=== PATIENT | female | born 1960 | race Caucasian/White ===

== ENCOUNTER → 2016-08-18 | Outpatient (CLI) | payer BC ==
[~2016-08-18] MED LIST: CELEXA20 MG; NORCO 325 MG-51 TAB PO; SYNTHROID0.15 MG PO
== END ==
LOC: RAD 10:16
DX: R07.81 Pleurodynia (principal)

== ENCOUNTER → 2016-09-24 | Outpatient (CLI) | payer BC | LOC: LAB 10:44 | DX: E03.9 Hypothyroidism, unspecified (principal) ==

== ENCOUNTER → 2016-11-25 | Outpatient (CLI) | payer BC ==
[2013-07-13 20:30] VITALS: BP 116/72
== END ==
LOC: LAB 12:02
DX: Z00.00 Encounter for general adult medical examination without abnormal findings (principal); R20.2 Paresthesia of skin; E03.1 Congenital hypothyroidism without goiter

== ENCOUNTER → 2018-10-16 | Outpatient (CLI) | payer BC ==
[2013-07-13 20:30] VITALS: BP 116/72
[2018-10-16 10:32] LABS: EOS # 0.1 (0.04-0.40); HEMATOCRIT 41.5 % (37.0-47.0); HEMOGLOBIN 13.1 g/dL (12.5-16.0); LYMPH# 1.3 (1.50-4.00); MEAN CELL VOLUME 92 fl (78-100); MEAN CORPUSCULAR HEMOGLOBIN 29 pg (27-31); MEAN CORPUSCULAR HGB CONC 32 g/dL (33-37); MEAN PLATELET VOLUME 9.8 fl (7.4-10.4); MONO # 0.4 (0.20-0.80); NEU # 4.1 (1.40-6.50); PLATELET COUNT 408 K/mm3 (130-400); RED BLOOD COUNT 4.53 M/mm3 (4.10-5.30); RED CELL DISTRIBUTION WIDTH 13.8 % (11.5-14.5); WHITE BLOOD COUNT 5.9 K/mm3 (4.8-10.8)
[2018-10-16 10:36] LABS: ALBUMIN 4.1 g/dL (3.5-5.0); POTASSIUM 4.7 mmol/L (3.6-5.0); TOTAL BILIRUBIN 0.6 mg/dL (0.2-1.3); TOTAL PROTEIN 7.2 g/dL (6.3-8.2)
[2018-10-16 12:28] LABS: ERYTHROCYTE SEDIMENTATION RATE 10 mm/hr (0-30)
== END ==
LOC: LAB 09:44
PROVIDERS: Internal Medicine
DX: Z00.00 Encounter for general adult medical examination without abnormal findings (principal); Z12.11 Encounter for screening for malignant neoplasm of colon; R20.2 Paresthesia of skin; E03.1 Congenital hypothyroidism without goiter

== ENCOUNTER → 2019-04-12 | Outpatient (CLI) | payer BC ==
[2013-07-13 20:30] VITALS: BP 116/72
[2019-04-12 10:57] LABS: EOS # 0.1 (0.04-0.40); EOS % 1.7 % (1.0-5.0); HEMATOCRIT 41.3 % (37.0-47.0); HEMOGLOBIN 13.3 g/dL (12.5-16.0); LYMPH# 1.4 (1.50-4.00); MEAN CELL VOLUME 91 fl (78-100); MEAN CORPUSCULAR HEMOGLOBIN 29 pg (27-31); MEAN CORPUSCULAR HGB CONC 32 g/dL (33-37); MEAN PLATELET VOLUME 9.4 fl (7.4-10.4); MONO # 0.5 (0.20-0.80); NEU # 4.7 (1.40-6.50); PLATELET COUNT 425 K/mm3 (130-400); RED BLOOD COUNT 4.55 M/mm3 (4.10-5.30); RED CELL DISTRIBUTION WIDTH 13.4 % (11.5-14.5); WHITE BLOOD COUNT 6.7 K/mm3 (4.8-10.8)
[2019-04-12 11:02] LABS: ALBUMIN 4.2 g/dL (3.5-5.0); POTASSIUM 4.6 mmol/L (3.5-5.1)
[2019-04-12 11:03] LABS: CALCIUM 9.5 mg/dL (8.3-10.5)
[2019-04-12 11:04] LABS: TOTAL PROTEIN 7.3 g/dL (6.4-8.3)
[2019-04-12 11:53] LABS: TOTAL BILIRUBIN 0.6 mg/dL (0.2-1.2)
[2019-04-12 12:19] LABS: ERYTHROCYTE SEDIMENTATION RATE 17 mm/hr (0-30)
== END ==
LOC: LAB 10:36
PROVIDERS: Internal Medicine
DX: Z00.00 Encounter for general adult medical examination without abnormal findings (principal); Z12.11 Encounter for screening for malignant neoplasm of colon; R20.2 Paresthesia of skin; E03.1 Congenital hypothyroidism without goiter; E55.9 Vitamin D deficiency, unspecified

== ENCOUNTER → 2019-04-26 | Outpatient (CLI) | payer BC ==
[2013-07-13 20:30] VITALS: BP 116/72
== END ==
LOC: MAMMO 09:15
DX: Z12.31 Encounter for screening mammogram for malignant neoplasm of breast (principal)

== ENCOUNTER → 2020-04-29 | Outpatient (CLI) | payer OTHER ==
[2013-07-13 20:30] VITALS: BP 116/72
== END ==
LOC: MAMMO 11:23
DX: Z12.31 Encounter for screening mammogram for malignant neoplasm of breast (principal)

== ENCOUNTER → 2020-05-05 | Outpatient (CLI) | payer OTHER ==
[2013-07-13 20:30] VITALS: BP 116/72
[2020-05-05 12:30] LABS: EOS # 0.1 (0.04-0.40); EOS % 1.6 % (1.0-5.0); HEMATOCRIT 40.6 % (37.0-47.0); LYMPH# 1.2 (1.50-4.00); MEAN CELL VOLUME 90 fl (78-100); MEAN CORPUSCULAR HEMOGLOBIN 29 pg (27-31); MEAN CORPUSCULAR HGB CONC 32 g/dL (33-37); MONO # 0.4 (0.20-0.80); NEU # 4.1 (1.40-6.50); PLATELET COUNT 341 K/mm3 (130-400); RED BLOOD COUNT 4.51 M/mm3 (4.10-5.30); RED CELL DISTRIBUTION WIDTH 14.1 % (11.5-14.5); WHITE BLOOD COUNT 5.8 K/mm3 (4.8-10.8)
[2020-05-05 12:34] LABS: ALBUMIN 3.9 g/dL (3.5-5.0); POTASSIUM 3.8 mmol/L (3.5-5.1)
[2020-05-05 12:35] LABS: CALCIUM 9.1 mg/dL (8.3-10.5)
[2020-05-05 12:37] LABS: TOTAL PROTEIN 6.4 g/dL (6.4-8.3)
[2020-05-05 12:38] LABS: TOTAL BILIRUBIN 0.4 mg/dL (0.2-1.2)
[2020-05-05 13:31] LABS: ERYTHROCYTE SEDIMENTATION RATE 6 mm/hr (0-30)
== END ==
LOC: LAB 11:59
PROVIDERS: Internal Medicine
DX: Z00.00 Encounter for general adult medical examination without abnormal findings (principal); Z12.11 Encounter for screening for malignant neoplasm of colon; E03.9 Hypothyroidism, unspecified; R20.2 Paresthesia of skin

== ENCOUNTER → 2020-05-14 | Outpatient (CLI) | payer OTHER ==
[2013-07-13 20:30] VITALS: BP 116/72
== END ==
LOC: LAB 09:38
DX: Z00.00 Encounter for general adult medical examination without abnormal findings (principal); Z12.11 Encounter for screening for malignant neoplasm of colon; R20.2 Paresthesia of skin

== ENCOUNTER → 2020-06-23 | Outpatient (CLI) | payer OTHER ==
[2013-07-13 20:30] VITALS: BP 116/72
== END ==
LOC: LAB 12:41
DX: Z20.828 Contact with and (suspected) exposure to other viral communicable diseases (principal)

== ENCOUNTER → 2020-06-26 | Day surgery (SDC) | payer OTHER ==
[2013-07-13 20:30] VITALS: BP 116/72
== END ==
LOC: MSO 08:07
DX: Z12.11 Encounter for screening for malignant neoplasm of colon (principal); K57.30 Diverticulosis of large intestine without perforation or abscess without bleeding; Z86.010 Personal history of colon polyps; K64.5 Perianal venous thrombosis; K64.8 Other hemorrhoids; G47.33 Obstructive sleep apnea (adult) (pediatric); E03.9 Hypothyroidism, unspecified; M19.90 Unspecified osteoarthritis, unspecified site; D50.9 Iron deficiency anemia, unspecified; Z90.710 Acquired absence of both cervix and uterus; F31.13 Bipolar disorder, current episode manic without psychotic features, severe; K90.9 Intestinal malabsorption, unspecified
CPT/HCPCS: G0105; 00812; J2704; J3010; J7120

== ENCOUNTER → 2020-08-06 | Outpatient (CLI) | payer OTHER ==
[2013-07-13 20:30] VITALS: BP 116/72
[2020-08-06 15:59] LABS: EOS # 0.2 (0.04-0.40); EOS % 2.5 % (1.0-5.0); HEMATOCRIT 44.7 % (37.0-47.0); HEMOGLOBIN 14.7 g/dL (12.5-16.0); MEAN CELL VOLUME 91 fl (78-100); MEAN CORPUSCULAR HEMOGLOBIN 30 pg (27-31); MEAN CORPUSCULAR HGB CONC 33 g/dL (33-37); MEAN PLATELET VOLUME 9.7 fl (7.4-10.4); MONO # 0.6 (0.20-0.80); NEU # 5.9 (1.40-6.50); PLATELET COUNT 376 K/mm3 (130-400); RED BLOOD COUNT 4.94 M/mm3 (4.10-5.30); RED CELL DISTRIBUTION WIDTH 14.9 % (11.5-14.5); WHITE BLOOD COUNT 8.7 K/mm3 (4.8-10.8)
[2020-08-06 16:11] LABS: ALBUMIN 4.2 g/dL (3.5-5.0)
[2020-08-06 16:12] LABS: POTASSIUM 4.7 mmol/L (3.5-5.1)
[2020-08-06 16:13] LABS: CALCIUM 9.6 mg/dL (8.3-10.5)
[2020-08-06 16:14] LABS: TOTAL PROTEIN 7.3 g/dL (6.4-8.3)
[2020-08-06 16:16] LABS: TOTAL BILIRUBIN 0.3 mg/dL (0.2-1.2)
[2020-08-06 16:53] LABS: ERYTHROCYTE SEDIMENTATION RATE 9 mm/hr (0-30)
== END ==
LOC: LAB 15:47
PROVIDERS: Internal Medicine
DX: K90.9 Intestinal malabsorption, unspecified (principal); E61.1 Iron deficiency; E03.1 Congenital hypothyroidism without goiter

== ENCOUNTER → 2020-10-09 | Outpatient (CLI) | payer OTHER ==
[2013-07-13 20:30] VITALS: BP 116/72
[~2020-10-09] MED LIST changes: +LAMICTAL 100MG100 MG PO; +NALTREXONE50 MG PO; +SEROQUEL400 MG PO
== END ==
LOC: LAB 09:45
DX: E03.1 Congenital hypothyroidism without goiter (principal)

== ENCOUNTER → 2020-11-07 | Outpatient (CLI) | payer OTHER ==
[2013-07-13 20:30] VITALS: BP 116/72
== END ==
LOC: LAB 12:25
DX: E03.1 Congenital hypothyroidism without goiter (principal)

== ENCOUNTER → 2020-12-31 | Outpatient (CLI) | payer OTHER ==
[2013-07-13 20:30] VITALS: BP 116/72
[2020-12-31 10:55] LABS: BASO # 0.05 (0.02-0.10); EOS % 6.2 % (1.0-5.0); HEMOGLOBIN 14.4 g/dL (12.5-16.0); MEAN CELL VOLUME 92 fl (78-100); MEAN CORPUSCULAR HEMOGLOBIN 30 pg (27-31); MEAN CORPUSCULAR HGB CONC 33 g/dL (33-37); MEAN PLATELET VOLUME 8.7 fl (7.4-10.4); MONO # 0.52 (0.20-0.80); PLATELET COUNT 456 K/mm3 (130-400); RED BLOOD COUNT 4.77 M/mm3 (4.10-5.30); RED CELL DISTRIBUTION WIDTH 13.9 % (11.5-14.5); WHITE BLOOD COUNT 8.1 K/mm3 (4.8-10.8)
[2020-12-31 11:09] LABS: ALBUMIN 4.4 g/dL (3.5-5.0); POTASSIUM 4.4 mmol/L (3.5-5.1)
[2020-12-31 11:10] LABS: CALCIUM 9.4 mg/dL (8.3-10.5)
[2020-12-31 11:12] LABS: TOTAL PROTEIN 7.6 g/dL (6.4-8.3)
[2020-12-31 11:14] LABS: TOTAL BILIRUBIN 0.6 mg/dL (0.2-1.2)
[2020-12-31 12:07] LABS: ERYTHROCYTE SEDIMENTATION RATE 1 mm/hr (0-30)
== END ==
LOC: LAB 10:42
PROVIDERS: Internal Medicine
DX: Z00.00 Encounter for general adult medical examination without abnormal findings (principal); E03.1 Congenital hypothyroidism without goiter; K90.9 Intestinal malabsorption, unspecified

== ENCOUNTER → 2021-02-04 | Outpatient (CLI) | payer OTHER | LOC: LAB 13:54 | DX: E03.1 Congenital hypothyroidism without goiter (principal) ==

== ENCOUNTER → 2021-02-20 | Outpatient (CLI) | payer OTHER | LOC: LAB 17:27 | DX: E03.9 Hypothyroidism, unspecified (principal) ==

== ENCOUNTER → 2021-04-13 | Outpatient (CLI) | payer OTHER | LOC: LAB 11:06 | DX: E03.9 Hypothyroidism, unspecified (principal) ==

== ENCOUNTER 2021-04-19 11:23 | Emergency (ER) | payer OTHER ==
[~2021-04-19] VITALS: Ht 167.6 cm; Wt 104.5 kg
[~2021-04-19 11:23] MED LIST changes: -LAMICTAL 100MG100 MG PO; -NALTREXONE50 MG PO; -SEROQUEL400 MG PO
[2021-04-19 11:35] VITALS: BP 106/72
[2021-04-19] MEDS ORDERED: LAMICTAL 100MG100 MG PO (12:21)
[2021-04-19] MEDS ORDERED: SEROQUEL400 MG PO (12:22)
[2021-04-19] MEDS ORDERED: NALTREXONE50 MG PO (12:25)
[2021-04-19 12:44] LABS: BASO # 0.03 (0.02-0.10); EOS # 0.12 (0.04-0.40); EOS % 1.4 % (1.0-5.0); HEMATOCRIT 45.3 % (37.0-47.0); HEMOGLOBIN 14.7 g/dL (12.5-16.0); MEAN CELL VOLUME 93 fl (78-100); MEAN CORPUSCULAR HEMOGLOBIN 30 pg (27-31); MEAN CORPUSCULAR HGB CONC 33 g/dL (33-37); MEAN PLATELET VOLUME 8.8 fl (7.4-10.4); MONO # 0.58 (0.20-0.80); NEU # 6.33 (1.40-6.50); PLATELET COUNT 432 K/mm3 (130-400); RED BLOOD COUNT 4.86 M/mm3 (4.10-5.30); WHITE BLOOD COUNT 8.8 K/mm3 (4.8-10.8)
[2021-04-19 12:54] LABS: ALBUMIN 4.6 g/dL (3.5-5.0)
[2021-04-19 12:55] LABS: POTASSIUM 4.1 mmol/L (3.5-5.1)
[2021-04-19 12:56] LABS: CALCIUM 10.1 mg/dL (8.3-10.5)
[2021-04-19 12:57] LABS: TOTAL PROTEIN 7.8 g/dL (6.4-8.3)
[2021-04-19 12:57] LABS: URINE APPEARANCE CLEAR; URINE BILIRUBIN NEGATIVE (NEGATIVE); URINE BLOOD NEGATIVE (NEGATIVE); URINE COLOR YELLOW; URINE GLUCOSE NEGATIVE (NEGATIVE); URINE KETONE NEGATIVE (NEGATIVE); URINE LEUKOCYTE ESTERASE TRACE (NEGATIVE); URINE NITRATE NEGATIVE (NEGATIVE); URINE PROTEIN(semi-quant) TRACE mg/dL (NEGATIVE); URINE UROBILINOGEN NORMAL (NORMAL)
[2021-04-19 12:58] LABS: URINE MUCUS PRESENT (NOT PRESENT)
[2021-04-19 12:59] LABS: TOTAL BILIRUBIN 0.5 mg/dL (0.2-1.2)
== END 2021-04-19 14:00 | disposition home or self-care (01) ==
LOC: ED 11:23
PROVIDERS: Family Medicine
DX: F31.9 Bipolar disorder, unspecified (principal); Z79.899 Other long term (current) drug therapy

== ENCOUNTER → 2021-06-15 | Outpatient (CLI) | payer OTHER ==
[~2021-06-15] MED LIST changes: +LAMICTAL 100MG100 MG PO; +NALTREXONE50 MG PO; +SEROQUEL400 MG PO
[2021-06-15 11:38] LABS: BASO # 0.02 K/mm3 (0.02-0.10); EOS # 0.07 K/mm3 (0.04-0.40); EOS % 0.7 % (1.0-5.0); HEMATOCRIT 43.6 % (37.0-47.0); HEMOGLOBIN 14.2 g/dL (12.5-16.0); LYMPH# 1.26 K/mm3 (1.50-4.00); MEAN CELL VOLUME 92 fl (78-100); MEAN CORPUSCULAR HEMOGLOBIN 30 pg (27-31); MEAN CORPUSCULAR HGB CONC 33 g/dL (33-37); MEAN PLATELET VOLUME 9.6 fl (7.4-10.4); MONO # 0.52 K/mm3 (0.20-0.80); NEU # 7.85 K/mm3 (1.40-6.50); PLATELET COUNT 415 K/mm3 (130-400); RED BLOOD COUNT 4.72 M/mm3 (4.10-5.30); RED CELL DISTRIBUTION WIDTH 13.6 % (11.5-14.5); WHITE BLOOD COUNT 9.7 K/mm3 (4.8-10.8)
[2021-06-15 12:29] LABS: ALBUMIN 4.4 g/dL (3.4-4.8); POTASSIUM 3.9 mmol/L (3.5-5.1)
[2021-06-15 12:30] LABS: CALCIUM 9.9 mg/dL (8.3-10.5)
[2021-06-15 12:31] LABS: TOTAL PROTEIN 7.6 g/dL (6.2-8.1)
[2021-06-15 12:33] LABS: TOTAL BILIRUBIN 1.4 mg/dL (0.2-1.2)
[2021-06-16 04:43] LABS: T3 FREE 3.5 pg/mL (1.7-3.7)
== END ==
LOC: LAB 11:04
PROVIDERS: Internal Medicine
DX: E03.9 Hypothyroidism, unspecified (principal); F31.9 Bipolar disorder, unspecified; K90.9 Intestinal malabsorption, unspecified

== ENCOUNTER → 2021-09-18 | Outpatient (CLI) | payer OTHER ==
[2021-09-18 22:12] LABS: T3 FREE 3.5 pg/mL (1.7-3.7)
== END ==
LOC: LAB 12:06
PROVIDERS: Internal Medicine
DX: E03.9 Hypothyroidism, unspecified (principal); K90.9 Intestinal malabsorption, unspecified

== ENCOUNTER → 2022-01-16 | Outpatient (CLI) | payer OTHER ==
[2022-01-16 09:33] LABS: BASO # 0.03 K/mm3 (0.02-0.10); EOS # 0.08 K/mm3 (0.04-0.40); EOS % 1.2 % (1.0-5.0); HEMATOCRIT 41.4 % (37.0-47.0); HEMOGLOBIN 13.4 g/dL (12.5-16.0); MEAN CELL VOLUME 93 fl (78-100); MEAN CORPUSCULAR HEMOGLOBIN 30 pg (27-31); MEAN CORPUSCULAR HGB CONC 32 g/dL (33-37); MEAN PLATELET VOLUME 8.6 fl (7.4-10.4); MONO # 0.52 K/mm3 (0.20-0.80); NEU # 4.09 K/mm3 (1.40-6.50); PLATELET COUNT 419 K/mm3 (130-400); RED BLOOD COUNT 4.45 M/mm3 (4.10-5.30); RED CELL DISTRIBUTION WIDTH 13.2 % (11.5-14.5); WHITE BLOOD COUNT 6.7 K/mm3 (4.8-10.8)
[2022-01-16 09:52] LABS: ALBUMIN 4.1 g/dL (3.4-4.8); POTASSIUM 4.8 mmol/L (3.5-5.1)
[2022-01-16 09:53] LABS: CALCIUM 9.6 mg/dL (8.3-10.5)
[2022-01-16 09:54] LABS: TOTAL PROTEIN 6.9 g/dL (6.2-8.1)
[2022-01-16 09:56] LABS: TOTAL BILIRUBIN 0.9 mg/dL (0.2-1.2)
== END ==
LOC: LAB 09:15
PROVIDERS: Internal Medicine
DX: Z00.00 Encounter for general adult medical examination without abnormal findings (principal)

== ENCOUNTER → 2022-05-11 | Outpatient (CLI) | payer OTHER | LOC: LAB 09:59 | DX: N39.0 Urinary tract infection, site not specified (principal) ==

== ENCOUNTER → 2022-10-26 | Outpatient (CLI) | payer OTHER ==
[2022-10-26 12:05] LABS: BASO # 0.04 K/mm3 (0.02-0.10); EOS # 0.06 K/mm3 (0.04-0.40); EOS % 0.5 % (1.0-5.0); HEMATOCRIT 43.7 % (37.0-47.0); HEMOGLOBIN 14.3 g/dL (12.5-16.0); LYMPH# 1.55 K/mm3 (1.50-4.00); MEAN CELL VOLUME 91 fl (78-100); MEAN CORPUSCULAR HEMOGLOBIN 30 pg (27-31); MEAN CORPUSCULAR HGB CONC 33 g/dL (33-37); MONO # 0.45 K/mm3 (0.20-0.80); NEU # 8.92 K/mm3 (1.40-6.50); PLATELET COUNT 417 K/mm3 (130-400); RED BLOOD COUNT 4.81 M/mm3 (4.10-5.30)
[2022-10-26 12:15] LABS: POTASSIUM 4.5 mmol/L (3.5-5.1)
[2022-10-26 12:16] LABS: ALBUMIN 4.7 g/dL (3.4-4.8)
[2022-10-26 12:17] LABS: CALCIUM 10.2 mg/dL (8.3-10.5)
[2022-10-26 12:18] LABS: TOTAL PROTEIN 7.9 g/dL (6.2-8.1)
[2022-10-26 12:20] LABS: TOTAL BILIRUBIN 0.7 mg/dL (0.2-1.2)
[2022-10-26 23:18] LABS: T3 FREE 2.2 pg/mL (1.7-3.7)
== END ==
LOC: LAB 11:30
PROVIDERS: Internal Medicine
DX: F31.9 Bipolar disorder, unspecified (principal); E03.9 Hypothyroidism, unspecified; K90.9 Intestinal malabsorption, unspecified; G47.33 Obstructive sleep apnea (adult) (pediatric); E78.2 Mixed hyperlipidemia; R73.03 Prediabetes; Z51.81 Encounter for therapeutic drug level monitoring

== ENCOUNTER → 2022-11-02 | Outpatient (CLI) | payer OTHER | LOC: MAMMO 10-27 16:00 | DX: Z12.31 Encounter for screening mammogram for malignant neoplasm of breast (principal) ==

== ENCOUNTER → 2024-01-06 | Outpatient (CLI) | payer OTHER | LOC: LAB 12:12 | DX: N39.0 Urinary tract infection, site not specified (principal) ==

== ENCOUNTER → 2024-01-24 | Outpatient (CLI) | payer OTHER ==
[2024-01-24 16:27] LABS: BASO # 0.01 K/mm3 (0.02-0.10); HEMATOCRIT 42.9 % (37.0-47.0); HEMOGLOBIN 13.5 g/dL (12.5-16.0); LYMPH# 1.69 K/mm3 (1.50-4.00); MEAN CELL VOLUME 93 fl (78-100); MEAN CORPUSCULAR HEMOGLOBIN 29 pg (27-31); MEAN CORPUSCULAR HGB CONC 32 g/dL (33-37); MEAN PLATELET VOLUME 8.9 fl (7.4-10.4); MONO # 0.46 K/mm3 (0.20-0.80); NEU # 5.78 K/mm3 (1.40-6.50); PLATELET COUNT 448 K/mm3 (130-400); RED BLOOD COUNT 4.62 M/mm3 (4.10-5.30); RED CELL DISTRIBUTION WIDTH 14.2 % (11.5-14.5)
[2024-01-24 16:30] LABS: ALBUMIN 4.6 g/dL (3.4-4.8)
[2024-01-24 16:31] LABS: CALCIUM 9.8 mg/dL (8.3-10.5)
[2024-01-24 16:32] LABS: TOTAL PROTEIN 7.3 g/dL (6.2-8.1)
[2024-01-24 16:34] LABS: TOTAL BILIRUBIN 0.6 mg/dL (0.2-1.2)
[2024-01-24 16:39] LABS: MAGNESIUM 2.17 mg/dL (1.60-2.60)
[2024-01-24 16:49] LABS: URINE APPEARANCE CLEAR (CLEAR); URINE BILIRUBIN NEGATIVE (NEGATIVE); URINE COLOR YELLOW (YELLOW); URINE GLUCOSE NEGATIVE (NEGATIVE); URINE KETONE NEGATIVE (NEGATIVE); URINE PROTEIN(semi-quant) NEGATIVE (NEGATIVE)
[2024-01-24 16:50] LABS: URINE BLOOD NEGATIVE (NEGATIVE); URINE LEUKOCYTE ESTERASE 1+ (NEGATIVE); URINE NITRATE NEGATIVE (NEGATIVE)
[2024-01-27 14:40] LABS: CREATININE OTHER SOURCE 105.2
[2024-01-27 14:41] LABS: HEPATITIS C VIRUS ANTIBODY AMS
== END ==
LOC: LAB 16:07
PROVIDERS: Internal Medicine
DX: Z12.11 Encounter for screening for malignant neoplasm of colon (principal); Z11.59 Encounter for screening for other viral diseases; N39.0 Urinary tract infection, site not specified; F31.9 Bipolar disorder, unspecified; K90.9 Intestinal malabsorption, unspecified; E03.9 Hypothyroidism, unspecified; R73.03 Prediabetes

== ENCOUNTER → 2024-02-01 | Outpatient (CLI) | payer OTHER | LOC: LAB 13:13 | DX: Z12.11 Encounter for screening for malignant neoplasm of colon (principal); Z11.59 Encounter for screening for other viral diseases; F31.9 Bipolar disorder, unspecified; E03.9 Hypothyroidism, unspecified; K90.9 Intestinal malabsorption, unspecified; R73.03 Prediabetes ==

== ENCOUNTER → 2024-06-04 | Outpatient (CLI) | payer MEDICARE, BC ==
[2024-06-04 17:13] LABS: BASO # 0.01 K/mm3 (0.02-0.10); EOS # 0.01 K/mm3 (0.04-0.40); EOS % 0.1 % (1.0-5.0); HEMATOCRIT 41.7 % (37.0-47.0); HEMOGLOBIN 13.3 g/dL (12.5-16.0); LYMPH# 1.89 K/mm3 (1.50-4.00); MEAN CELL VOLUME 91 fl (78-100); MEAN CORPUSCULAR HEMOGLOBIN 29 pg (27-31); MEAN CORPUSCULAR HGB CONC 32 g/dL (33-37); MEAN PLATELET VOLUME 9.8 fl (7.4-10.4); MONO # 0.67 K/mm3 (0.20-0.80); NEU # 7.54 K/mm3 (1.40-6.50); PLATELET COUNT 368 K/mm3 (130-400); RED BLOOD COUNT 4.57 M/mm3 (4.10-5.30); RED CELL DISTRIBUTION WIDTH 14.6 % (11.5-14.5); WHITE BLOOD COUNT 10.1 K/mm3 (4.8-10.8)
[2024-06-04 17:17] LABS: ALBUMIN 4.5 g/dL (3.4-4.8)
[2024-06-04 17:18] LABS: CALCIUM 9.6 mg/dL (8.3-10.5)
[2024-06-04 17:21] LABS: TOTAL BILIRUBIN 0.5 mg/dL (0.2-1.2)
[2024-06-04 17:26] LABS: MAGNESIUM 2.13 mg/dL (1.60-2.60)
[2024-06-04 17:40] LABS: PH-URINE 5.5 (5.0 - 8.0); URINE APPEARANCE CLOUDY (CLEAR); URINE BILIRUBIN NEGATIVE (NEGATIVE); URINE BLOOD 2+ (NEGATIVE); URINE COLOR YELLOW (YELLOW); URINE GLUCOSE NEGATIVE (NEGATIVE); URINE KETONE 1+ (NEGATIVE); URINE NITRATE POSITIVE (NEGATIVE); URINE PROTEIN(semi-quant) 2+ (NEGATIVE)
[2024-06-04 17:42] LABS: URINE LEUKOCYTE ESTERASE 3+ (NEGATIVE); URINE WBC >50 /hpf (0-3)
== END ==
LOC: LAB 16:51
PROVIDERS: Internal Medicine
DX: F31.9 Bipolar disorder, unspecified (principal); E03.9 Hypothyroidism, unspecified; N39.0 Urinary tract infection, site not specified

== ENCOUNTER → 2024-07-09 | Outpatient (CLI) | payer MEDICARE, BC | LOC: PT 13:00 | DX: G47.33 Obstructive sleep apnea (adult) (pediatric) (principal) | CPT/HCPCS: G0399 ==

== ENCOUNTER → 2024-07-23 | Outpatient (CLI) | payer MEDICARE, BC | LOC: MAMMO 13:28 | DX: Z12.31 Encounter for screening mammogram for malignant neoplasm of breast (principal) ==

== ENCOUNTER → 2024-07-25 | Outpatient (CLI) | payer MEDICARE, BC | LOC: LAB 13:29 | DX: N39.0 Urinary tract infection, site not specified (principal) ==

== ENCOUNTER 2024-09-06 14:05 | Emergency (ER) | payer MEDICARE, BC ==
[~2024-09-06] VITALS: Ht 157.5 cm; Wt 90.0 kg
[2024-09-06] MEDS ORDERED: LIOTHYRONINE SO5 MCG PO (14:20)
[2024-09-06] MEDS ORDERED: METFORMIN HYD1000 MG PO (14:20)
[2024-09-06] MEDS ORDERED: DIVALPROEX SOD500 M2 PO (14:21)
[2024-09-06 14:43] LABS: BASO # 0.02 K/mm3 (0.02-0.10); EOS # 0.02 K/mm3 (0.04-0.40); EOS % 0.4 % (1.0-5.0); HEMATOCRIT 35.4 % (37.0-47.0); HEMOGLOBIN 11.5 g/dL (12.5-16.0); LYMPH# 1.26 K/mm3 (1.50-4.00); MEAN CELL VOLUME 89 fl (78-100); MEAN CORPUSCULAR HEMOGLOBIN 29 pg (27-31); MEAN CORPUSCULAR HGB CONC 33 g/dL (33-37); MEAN PLATELET VOLUME 9.6 fl (7.4-10.4); MONO # 0.41 K/mm3 (0.20-0.80); NEU # 3.12 K/mm3 (1.40-6.50); PLATELET COUNT 262 K/mm3 (130-400); RED CELL DISTRIBUTION WIDTH 14.4 % (11.5-14.5); WHITE BLOOD COUNT 4.8 K/mm3 (4.8-10.8)
[2024-09-06] MEDS ORDERED: NS 1,000 ML IV SCH (14:45)
[2024-09-06 14:47] LABS: ALBUMIN 2.9 g/dL (3.4-4.8)
[2024-09-06 14:49] LABS: CALCIUM 7.7 mg/dL (8.3-10.5)
[2024-09-06 14:50] LABS: TOTAL PROTEIN 5.1 g/dL (6.2-8.1)
[2024-09-06 14:52] LABS: TOTAL BILIRUBIN 0.4 mg/dL (0.2-1.2)
[2024-09-06 15:54] LABS: PH-URINE 5.5 (5.0 - 8.0); URINE APPEARANCE CLEAR (CLEAR); URINE BILIRUBIN NEGATIVE (NEGATIVE); URINE BLOOD NEGATIVE (NEGATIVE); URINE COLOR YELLOW (YELLOW); URINE GLUCOSE NEGATIVE (NEGATIVE); URINE KETONE TRACE (NEGATIVE); URINE LEUKOCYTE ESTERASE 1+ (NEGATIVE); URINE NITRATE NEGATIVE (NEGATIVE); URINE PROTEIN(semi-quant) NEGATIVE (NEGATIVE)
[2024-09-06 15:55] LABS: URINE MUCUS PRESENT (NOT PRESENT)
[2024-09-06] MEDS ORDERED: cefTRIAXone 1 G in Water For Injection,Sterile 10 ML IV ONE (17:00)
[2024-09-06] MEDS ORDERED: CEPHALEXIN500 M1 PO (17:53)
[2024-09-06 18:27] VITALS: BP 113/77
[2024-09-11] MEDS ORDERED: CYANOCOBAL1000 MCG/2 IJ (13:07)
== END 2024-09-06 18:28 | disposition home or self-care (01) ==
LOC: ED 14:05
PROVIDERS: Nurse Practitioner
DX: N39.0 Urinary tract infection, site not specified (principal); R53.1 Weakness; Z91.81 History of falling
CPT/HCPCS: J0696; J7030

== ENCOUNTER → 2024-09-11 | Outpatient (CLI) | payer MEDICARE, BC ==
[~2024-09-11] VITALS: Ht 167.6 cm; Wt 90.0 kg
[~2024-09-11] MED LIST changes: +CEPHALEXIN500 M1 PO; +CYANOCOBAL1000 MCG/2 IJ; +DIVALPROEX SOD500 M2 PO; +LIOTHYRONINE SO5 MCG PO; +METFORMIN HYD1000 MG PO
[2024-09-11 12:53] VITALS: BP 119/81
[2024-09-11 13:17] LABS: BASO # 0.03 K/mm3 (0.02-0.10); EOS # 0.05 K/mm3 (0.04-0.40); EOS % 0.7 % (1.0-5.0); HEMATOCRIT 38.3 % (37.0-47.0); HEMOGLOBIN 12.5 g/dL (12.5-16.0); MEAN CELL VOLUME 87 fl (78-100); MEAN CORPUSCULAR HEMOGLOBIN 28 pg (27-31); MEAN CORPUSCULAR HGB CONC 33 g/dL (33-37); MEAN PLATELET VOLUME 9.8 fl (7.4-10.4); MONO # 0.63 K/mm3 (0.20-0.80); NEU # 5.22 K/mm3 (1.40-6.50); PLATELET COUNT 303 K/mm3 (130-400); RED BLOOD COUNT 4.41 M/mm3 (4.10-5.30); RED CELL DISTRIBUTION WIDTH 14.8 % (11.5-14.5); WHITE BLOOD COUNT 7.5 K/mm3 (4.8-10.8)
[2024-09-11 13:24] LABS: ALBUMIN 3.2 g/dL (3.4-4.8)
[2024-09-11 13:25] LABS: CALCIUM 8.2 mg/dL (8.3-10.5)
[2024-09-11 13:27] LABS: TOTAL PROTEIN 5.6 g/dL (6.2-8.1)
[2024-09-11 13:28] LABS: TOTAL BILIRUBIN 0.5 mg/dL (0.2-1.2)
[2024-09-11 13:33] LABS: MAGNESIUM 1.83 mg/dL (1.60-2.60)
--- NOTE | 2024-09-11 14:09 | NUR ---
CRITICAL TSH LEVEL CALLED TO DR. DELEON AT THIS TIME.
[2024-09-11 15:30] VITALS: BP 131/95
== END ==
LOC: AMSURD 12:33
PROVIDERS: Internal Medicine
DX: F31.9 Bipolar disorder, unspecified (principal); E03.9 Hypothyroidism, unspecified; K90.9 Intestinal malabsorption, unspecified
CPT/HCPCS: J7120

== ENCOUNTER → 2024-09-20 | Outpatient (CLI) | payer MEDICARE, BC ==
[2024-09-20 18:44] LABS: PH-URINE 6.5 (5.0 - 8.0); URINE APPEARANCE CLEAR (CLEAR); URINE BILIRUBIN NEGATIVE (NEGATIVE); URINE BLOOD NEGATIVE (NEGATIVE); URINE COLOR YELLOW (YELLOW); URINE GLUCOSE NEGATIVE (NEGATIVE); URINE KETONE NEGATIVE (NEGATIVE); URINE LEUKOCYTE ESTERASE TRACE (NEGATIVE); URINE NITRATE NEGATIVE (NEGATIVE); URINE PROTEIN(semi-quant) NEGATIVE (NEGATIVE); URINE WBC 0-1 /hpf (0-3)
== END ==
LOC: LAB 11:53
DX: Z51.81 Encounter for therapeutic drug level monitoring (principal); Z79.899 Other long term (current) drug therapy

== ENCOUNTER → 2024-11-06 | Outpatient (CLI) | payer MEDICARE, BC | LOC: LAB 13:54 | DX: E03.9 Hypothyroidism, unspecified (principal) ==

== ENCOUNTER → 2024-11-06 | Outpatient (CLI) | payer MEDICARE, BC | LOC: LAB 11:31 | DX: E03.9 Hypothyroidism, unspecified (principal) ==